=== PATIENT | male | born 1965 | race Caucasian/White ===

== ENCOUNTER 2020-03-15 06:33 | Observation (INO) | payer OTHER ==
[~2020-03-15] VITALS: Ht 167.6 cm; Wt 87.5 kg
[~2020-03-15 06:33] MED LIST: AMLODIPINE BESYL5 MG PO; B-121000 MCG PO; CARISOPRODOL350 MG PO; CITALOPRAM HBR40 MG PO; CLINDAMYCIN HC300 MG PO; ECOTRIN325 MG PO; FUROSEMIDE40 MG PO; HYDROCODON-ACE1 EAC9 PO; LOSARTAN POTAS100 MG PO; METOPROLOL SUC100 MG PO; NEURONTIN300 MG PO; PANTOPRAZOLE SO20 MG PO
[2020-03-15] MEDS ORDERED: PANTOPRAZOLE 40 MG 10ML VIAL IV STA (06:41)
[2020-03-15] MEDS ORDERED: KETOROLAC TROMETHAMINE 30 MG/ML VIAL IV STA (06:41)
[2020-03-15] MEDS ORDERED: NITROGLYCERIN 2% OINT 1 GM PKT TOP ONE (06:45)
[2020-03-15 07:49] LABS: BASOPHILS # (AUTO) 0.1 (0.0-0.1); BASOPHILS % 1.2 % (0.0-1.0); EOSINOPHILS # (AUTO) 0.2 (0.0-0.4); EOSINOPHILS % 2.5 % (0.0-6.0); HEMOGLOBIN 13.4 g/dL (14.0-18.0); LYMPHOCYTES # (AUTO) 2.1 (1.0-3.2); LYMPHOCYTES % 34.1 % (18.0-39.1); MEAN CORPUSCULAR HEMOGLOBIN 27.9 pg (28-32); MEAN CORPUSCULAR HGB CONC 31.9 g/dL (31-35); MEAN CORPUSCULAR VOLUME 87.5 fL (81-99); MONOCYTES # (AUTO) 0.6 (0.2-0.8); MONOCYTES % 9.9 % (4.4-11.3); NEUTROPHILS # (AUTO) 3.2 (2.1-6.9); NEUTROPHILS % 52.1 % (38.7-80.0); PLATELET COUNT 238 x10e3/uL (140-360); RED CELL DISTRIBUTION WIDTH 13.7 % (11.7-14.4)
[2020-03-15 08:12] LABS: INR 0.92; PROTHROMBIN TIME 12.8 seconds (11.9-14.5)
[2020-03-15] MEDS ORDERED: NITROGLYCERIN 0.4 MG SUBL SL PRN (08:30)
[2020-03-15] MEDS ORDERED: ONDANSETRON HCL INJ 2MG/ML 2ML 2 MG/ML VIAL IV PRN (08:30)
[2020-03-15 08:32] LABS: ALANINE AMINOTRANSFERASE 17 IU/L (0-55); ALBUMIN 4.3 g/dL (3.5-5.0); ALBUMIN/GLOBULIN RATIO 1.3 (0.8-2.0); ALKALINE PHOSPHATASE 66 IU/L (40-150); ANION GAP 15.8 mmol/L (8-16); BLOOD UREA NITROGEN 13 mg/dL (7-26); BUN/CREATININE RATIO 14 (6-25); CALCIUM 9.2 mg/dL (8.4-10.2); CARBON DIOXIDE 23 mmol/L (22-29); CHLORIDE 100 mmol/L (98-107); CREATINE KINASE 51 IU/L (30-200); CREATININE, SERUM 0.96 mg/dL (0.72-1.25); EST GLOMERULAR FILTRATION RATE > 60 ML/MIN (60-); GLUCOSE 120 mg/dL (74-118); POTASSIUM 3.8 mmol/L (3.5-5.1); SODIUM 135 mmol/L (136-145)
[2020-03-15] MEDS ORDERED: ASPIRIN 81 MG ENTERIC COATED PO SCH (09:00)
[2020-03-15] MEDS ORDERED: CLOPIDOGREL BISULFATE 75 MG TAB PO SCH (09:00)
[2020-03-15] MEDS ORDERED: OLMESARTAN MEDO20 MG PO (09:27)
[2020-03-15] MEDS ORDERED: CLOPIDOGREL75 MG PO (09:27)
[2020-03-15] MEDS ORDERED: K DUR10 MEQ PO (09:27)
[2020-03-15] MEDS ORDERED: SIMVASTATIN20 MG PO (09:27)
[2020-03-15] MEDS ORDERED: ACETAMINOPHEN 325 MG TAB PO PRN (10:30)
[2020-03-15] MEDS ORDERED: POLYETHYLENE GLYCOL 3350 17 GM PACK PO PRN (10:30)
[2020-03-15] MEDS ORDERED: HYDRALAZINE HCL 20 MG/ML VIAL IV PRN (10:30)
[2020-03-15] MEDS ORDERED: TEMAZEPAM 15 MG CAP PO PRN (10:30)
[2020-03-15 12:19] LABS: CREATINE KINASE MB 1.2 ng/mL (0-5.0)
[2020-03-15 12:42] LABS: BILIRUBIN,URINE NEGATIVE (NEGATIVE); CLARITY,URINE CLEAR (CLEAR); COLOR,URINE YELLOW (YELLOW); KETONES,URINE NEGATIVE (NEGATIVE); LEUKOCYTE ESTERASE ,URINE NEGATIVE (NEGATIVE); MUCUS,URINE RARE (RARE); NITRITE,URINE NEGATIVE (NEGATIVE); PROTEIN,URINE DIPSTICK NEGATIVE (NEGATIVE); RBC,URINE 0-5 /HPF (0-5); URINE UROBILINOGEN 0.2 mg/dL (0.2 - 1); WBC,URINE (MAN) 0-5 /HPF (0-5)
[2020-03-15] MEDS ORDERED: CARISOPRODOL 350 MG TAB PO PRN (15:00)
[2020-03-15] MEDS: GABAPENTIN 300 MG CAP PO SCH ×2 (16:16→21:00)
[2020-03-15] MEDS ORDERED: METOPROLOL SUCCINATE 50 MG TAB XL PO SCH (17:00)
[2020-03-15] MEDS: DOCUSATE SODIUM 100 MG CAP PO SCH (17:00)
[2020-03-15] MEDS ORDERED: METOPROLOL SUCCINATE 50 MG PO SCH (17:00)
[2020-03-15] MEDS: METOPROLOL SUCCINATE 50 MG TAB XL PO SCH (18:00)
[2020-03-15 18:22] VITALS: BP 100/76
[2020-03-15 18:28] VITALS: BP 100/76
[2020-03-15 20:00] VITALS: BP 128/93
[2020-03-15] MEDS ORDERED: METOPROLOL TARTRATE 50 MG TAB PO SCH (20:00)
[2020-03-15 20:21] LABS: CREATINE KINASE MB 1.3 ng/mL (0-5.0)
[2020-03-15] MEDS: FAMOTIDINE 20 MG/2 ML VIAL IV SCH (21:00)
[2020-03-15] MEDS: SODIUM CHLORIDE 0.9% 1000ML 1,000 ML IV SCH (21:00)
[2020-03-15 23:07] VITALS: BP 100/76
[2020-03-16] VITALS (13 sets, daily range): BP systolic 113–145; BP diastolic 61–114
[2020-03-16 05:25] LABS: BASOPHILS % 0.5 % (0.0-1.0); EOSINOPHILS # (AUTO) 0.1 (0.0-0.4); HEMATOCRIT 36.6 % (38.2-49.6); LYMPHOCYTES # (AUTO) 1.6 (1.0-3.2); LYMPHOCYTES % 25.8 % (18.0-39.1); MEAN CORPUSCULAR HGB CONC 32.8 g/dL (31-35); MEAN CORPUSCULAR VOLUME 85.5 fL (81-99); MONOCYTES # (AUTO) 0.6 (0.2-0.8); MONOCYTES % 10.3 % (4.4-11.3); NEUTROPHILS # (AUTO) 3.8 (2.1-6.9); NEUTROPHILS % 61.1 % (38.7-80.0); PLATELET COUNT 185 x10e3/uL (140-360); RED BLOOD COUNT 4.28 x10e6/uL (4.3-5.7); RED CELL DISTRIBUTION WIDTH 13.5 % (11.7-14.4)
[2020-03-16 05:52] LABS: ALANINE AMINOTRANSFERASE 13 IU/L (0-55); ALKALINE PHOSPHATASE 58 IU/L (40-150); ANION GAP 14.2 mmol/L (8-16); BLOOD UREA NITROGEN 15 mg/dL (7-26); BUN/CREATININE RATIO 16 (6-25); CALCIUM 8.6 mg/dL (8.4-10.2); CARBON DIOXIDE 21 mmol/L (22-29); CHLORIDE 107 mmol/L (98-107); CREATININE, SERUM 0.92 mg/dL (0.72-1.25); EST GLOMERULAR FILTRATION RATE > 60 ML/MIN (60-); GLUCOSE 90 mg/dL (74-118); POTASSIUM 4.2 mmol/L (3.5-5.1); SODIUM 138 mmol/L (136-145)
[2020-03-16] MEDS: PANTOPRAZOLE SOD 40 MG TABEC PO SCH (07:30)
[2020-03-16] MEDS ORDERED: HEPARIN SOD/SOD CHLORIDE 2,000 ML ONE (07:51)
[2020-03-16] MEDS ORDERED: LIDOCAINE HCL 2% LOCAL 20 ML VIAL ONE (07:51)
[2020-03-16] MEDS ORDERED: IOPAMIDOL 370 MG/ML 200 ML INFUS..BTL INJ ONE (07:52)
[2020-03-16] MEDS ORDERED: HEPARIN SOD (PORCINE) 1000 UNIT/ML 30ML ONE (07:57)
[2020-03-16] MEDS ORDERED: MIDAZOLAM HCL 2 MG/2 ML VIAL ONE (07:57)
[2020-03-16] MEDS ORDERED: FENTANYL CITRATE/PF 100MCG/2 ML INJ ONE (07:58)
[2020-03-16] MEDS ORDERED: SODIUM CHLORIDE 0.9% 1000ML 1,000 ML ONE (07:59)
[2020-03-16] MEDS ORDERED: NITROGLYCERIN/D5W 200 MCG/ML 250 ML ONE (07:59)
[2020-03-16] MEDS ORDERED: BIVALRIUDIN 250 MG/VIAL VIAL IV ONE (08:19)
[2020-03-16] MEDS ORDERED: SODIUM CHLORIDE 0.9% 50ML 50 ML ONE (08:20)
[2020-03-16 08:33] LABS: MAGNESIUM 2.1 MG/DL (1.3-2.1); PHOSPHORUS 2.1 MG/DL (2.3-4.7)
[2020-03-16] MEDS ORDERED: ASPIRIN 325 MG TAB ONE (08:43)
[2020-03-16] MEDS ORDERED: CLOPIDOGREL BISULFATE 75 MG TAB ONE (08:43)
[2020-03-16] MEDS ORDERED: CEFAZOLIN SOD 2 GM/D5W 50ML 50 ML IV ONE (08:44)
[2020-03-16 08:53] LABS: ALBUMIN 4.4 g/dL (3.5-5.0); ALBUMIN/GLOBULIN RATIO 1.9 (0.8-2.0)
[2020-03-16 08:54] LABS: THYROID STIMULATING HORMONE 1.13 uIU/mL (0.350-4.940)
[2020-03-16] MEDS ORDERED: NON-FORMULARY MEDICATION (Pantoprazole Sodium 40 MG) PO SCH (09:00)
[2020-03-16] MEDS: FUROSEMIDE 20 MG TAB PO SCH (09:00)
[2020-03-16] MEDS: ASPIRIN 81 MG ENTERIC COATED PO SCH (09:00)
[2020-03-16] MEDS ORDERED: NON-FORMULARY MEDICATION (Cyanocobalamin (Vitamin B-12) (B-12) 1,000 MCG) PO SCH (09:00)
[2020-03-16] MEDS ORDERED: FUROSEMIDE 40 MG TAB PO SCH (09:00)
[2020-03-16] MEDS ORDERED: FUROSEMIDE 20 MG TAB PO SCH (09:00)
[2020-03-16] MEDS ORDERED: ASPIRIN 325 MG TAB EC PO SCH (09:00)
[2020-03-16] MEDS: CLOPIDOGREL BISULFATE 75 MG TAB PO SCH (09:00)
[2020-03-16] MEDS ORDERED: NON-FORMULARY MEDICATION (Citalopram Hydrobromide (Citalopram Hbr) 40 MG) PO SCH (09:00)
[2020-03-16] MEDS: FAMOTIDINE 20 MG/2 ML VIAL IV SCH ×2 (09:40→21:00)
[2020-03-16] MEDS: OLMESARTAN 20 MG TAB PO SCH (09:41)
[2020-03-16] MEDS: CITALOPRAM HYDROBROMIDE 20 MG TAB PO SCH (09:41)
[2020-03-16] MEDS: POTASSIUM CHLORIDE 10MEQ EA PO SCH (09:42)
[2020-03-16] MEDS: AMLODIPINE BESYLATE 5 MG TAB PO SCH (09:42)
[2020-03-16] MEDS: DOCUSATE SODIUM 100 MG CAP PO SCH ×2 (09:42→16:00)
[2020-03-16] MEDS: GABAPENTIN 300 MG CAP PO SCH ×3 (09:42→21:00)
[2020-03-16] MEDS: METOPROLOL SUCCINATE 50 MG TAB XL PO SCH (09:43)
[2020-03-16] MEDS: CYANOCOBALAMIN 1,000 MCG TAB PO SCH (09:43)
[2020-03-16] MEDS: MORPHINE SULFATE 2 MG/ML SYR 1ML IV PRN ×2 (10:05→21:00)
[2020-03-16] MEDS: SODIUM CHLORIDE 0.9% 1000ML 1,000 ML IV SCH (10:59)
[2020-03-16] MEDS ORDERED: SIMVASTATIN 20 MG TAB PO SCH (21:00)
[2020-03-17] VITALS: BP 97/57
[2020-03-17 04:00] VITALS: BP 118/67
[2020-03-17 05:10] LABS: BASOPHILS % 0.6 % (0.0-1.0); EOSINOPHILS # (AUTO) 0.1 (0.0-0.4); EOSINOPHILS % 2.4 % (0.0-6.0); HEMATOCRIT 35.7 % (38.2-49.6); HEMOGLOBIN 11.4 g/dL (14.0-18.0); LYMPHOCYTES # (AUTO) 1.4 (1.0-3.2); LYMPHOCYTES % 25.7 % (18.0-39.1); MEAN CORPUSCULAR HEMOGLOBIN 27.7 pg (28-32); MEAN CORPUSCULAR HGB CONC 31.9 g/dL (31-35); MEAN CORPUSCULAR VOLUME 86.7 fL (81-99); MONOCYTES # (AUTO) 0.6 (0.2-0.8); NEUTROPHILS # (AUTO) 3.2 (2.1-6.9); NEUTROPHILS % 60.1 % (38.7-80.0); PLATELET COUNT 178 x10e3/uL (140-360); RED BLOOD COUNT 4.12 x10e6/uL (4.3-5.7); RED CELL DISTRIBUTION WIDTH 13.7 % (11.7-14.4)
[2020-03-17 05:31] LABS: ALANINE AMINOTRANSFERASE 11 IU/L (0-55); ALKALINE PHOSPHATASE 56 IU/L (40-150); ANION GAP 14.3 mmol/L (8-16); BLOOD UREA NITROGEN 9 mg/dL (7-26); BUN/CREATININE RATIO 11 (6-25); CALCIUM 8.2 mg/dL (8.4-10.2); CARBON DIOXIDE 21 mmol/L (22-29); CHLORIDE 110 mmol/L (98-107); CREATININE, SERUM 0.82 mg/dL (0.72-1.25); EST GLOMERULAR FILTRATION RATE > 60 ML/MIN (60-); GLUCOSE 91 mg/dL (74-118); POTASSIUM 4.3 mmol/L (3.5-5.1); SODIUM 141 mmol/L (136-145)
[2020-03-17 05:58] LABS: ALBUMIN 4.1 g/dL (3.5-5.0); ALBUMIN/GLOBULIN RATIO 1.9 (0.8-2.0)
[2020-03-17 07:30] VITALS: BP 117/66
[2020-03-17 07:52] VITALS: BP 117/66
[2020-03-17] MEDS: PANTOPRAZOLE SOD 40 MG TABEC PO SCH (10:37)
[2020-03-17] MEDS: ASPIRIN 81 MG ENTERIC COATED PO SCH (10:37)
[2020-03-17] MEDS: SODIUM CHLORIDE 0.9% 1000ML 1,000 ML IV SCH (10:37)
[2020-03-17] MEDS: FAMOTIDINE 20 MG/2 ML VIAL IV SCH (10:37)
[2020-03-17] MEDS: CITALOPRAM HYDROBROMIDE 20 MG TAB PO SCH (10:38)
[2020-03-17] MEDS: GABAPENTIN 300 MG CAP PO SCH (10:38)
[2020-03-17] MEDS: DOCUSATE SODIUM 100 MG CAP PO SCH (10:38)
[2020-03-17] MEDS: POTASSIUM CHLORIDE 10MEQ EA PO SCH (10:38)
[2020-03-17] MEDS: OLMESARTAN 20 MG TAB PO SCH (10:38)
[2020-03-17] MEDS: AMLODIPINE BESYLATE 5 MG TAB PO SCH (10:38)
[2020-03-17] MEDS: FUROSEMIDE 20 MG TAB PO SCH (10:38)
[2020-03-17] MEDS: CLOPIDOGREL BISULFATE 75 MG TAB PO SCH (10:39)
[2020-03-17] MEDS: CYANOCOBALAMIN 1,000 MCG TAB PO SCH (10:40)
[2020-03-17] MEDS: METOPROLOL SUCCINATE 50 MG TAB XL PO SCH (10:40)
[2020-03-17] MEDS ORDERED: NITROSTAT0.4 MG SL (11:12)
[2020-03-17] MEDS ORDERED: COLACE100 MG PO (11:12)
[2020-03-17] MEDS ORDERED: FUROSEMIDE20 MG PO (11:12)
[2020-03-17] MEDS ORDERED: ACETAMINOPHEN325 M1 PO (11:12)
[2020-03-17] MEDS ORDERED: MIRALAX17 GM PO (11:13)
[2020-03-17 11:28] VITALS: BP 140/107
== END 2020-03-17 13:36 | disposition home or self-care (01) ==
LOC: ER 06:43 → ERHOLD 08:25 → MED/SURG2 16:42
PROVIDERS: ADMIT Internal Medicine; ATTEND Internal Medicine
DX: I25.110 Atherosclerotic heart disease of native coronary artery with unstable angina pectoris (principal); I25.2 Old myocardial infarction; I11.0 Hypertensive heart disease with heart failure; I50.22 Chronic systolic (congestive) heart failure; Z87.891 Personal history of nicotine dependence; F10.21 Alcohol dependence, in remission; Z20.828 Contact with and (suspected) exposure to other viral communicable diseases; E78.5 Hyperlipidemia, unspecified; Z95.5 Presence of coronary angioplasty implant and graft; E03.9 Hypothyroidism, unspecified; G62.9 Polyneuropathy, unspecified
CPT/HCPCS: 36415 ×3; 71045; 80053 ×3; 80061; 81001; 82550; 82553; 82948; 83036; 83735; 83880; 84100; 84443; 84484; 85025 ×3; 85379; 85610; 85730; 92928; 93005; 93306; 93458; 96360; 96361; 97139; 97161; 99284; C1760; C1766; C1769; C1876; C1887 ×2; C9113; G0378 ×3; J0583; J0690; J1885; J2001; J2250; J2270 ×2; J2405; J3010; J7030 ×3; Q9967; S0164; U0002; 99152; 99153; J1644

== ENCOUNTER → 2024-05-15 | Day surgery (SDC) | payer OTHER ==
[2024-05-12 11:35] LABS: BASOPHILS # (AUTO) 0.1 (0.0-0.1); BASOPHILS % 0.8 % (0.0-1.0); EOSINOPHILS # (AUTO) 0.2 (0.0-0.4); EOSINOPHILS % 3.4 % (0.0-6.0); LYMPHOCYTES # (AUTO) 1.6 (1.0-3.2); LYMPHOCYTES % 25.3 % (18.0-39.1); MEAN CORPUSCULAR HGB CONC 30.6 g/dL (31-35); MEAN CORPUSCULAR VOLUME 88.2 fL (81-99); MONOCYTES # (AUTO) 0.5 (0.2-0.8); MONOCYTES % 7.9 % (4.4-11.3); NEUTROPHILS % 62.4 % (38.7-80.0); PLATELET COUNT 250 x10e3/uL (140-360); RED BLOOD COUNT 4.08 x10e6/uL (4.3-5.7); RED CELL DISTRIBUTION WIDTH 13.5 % (11.7-14.4); WHITE BLOOD COUNT 6.43 x10e3/uL (4.8-10.8)
[~2024-05-15] MED LIST changes: +ACETAMINOPHEN325 M1 PO; +CLOPIDOGREL75 MG PO; +COLACE100 MG PO; +FIBER TABS625 MG PO; +FUROSEMIDE20 MG PO; +FUROSEMIDE80 MG PO; +K DUR10 MEQ PO; +MIRALAX17 GM PO; +NITROSTAT0.4 MG SL; +OLMESARTAN MEDO20 MG PO; +SIMVASTATIN20 MG PO; +ULTRAM 50MG50 MG PO
[2024-05-15] MEDS: LACTATED RINGER'S 1,000 ML ONE (09:31)
[2024-05-15 10:54] VITALS: TEMP 97.6
[2024-05-15 11:20] VITALS: BP 136/85; PULSE 51; RESP 18; O2SAT 98
== END | disposition home or self-care (01) ==
LOC: OR 08:53
PROVIDERS: ATTEND Internal Medicine Gastroenterology
DX: K44.9 Diaphragmatic hernia without obstruction or gangrene (principal); K29.60 Other gastritis without bleeding; K31.1 Adult hypertrophic pyloric stenosis; K20.90 Esophagitis, unspecified without bleeding; K92.0 Hematemesis; K21.9 Gastro-esophageal reflux disease without esophagitis; K59.09 Other constipation; Z71.3 Dietary counseling and surveillance; D64.9 Anemia, unspecified; R05.3 Chronic cough; I11.0 Hypertensive heart disease with heart failure; I50.9 Heart failure, unspecified; Z71.89 Other specified counseling; I25.10 Atherosclerotic heart disease of native coronary artery without angina pectoris; E78.00 Pure hypercholesterolemia, unspecified; E66.9 Obesity, unspecified; F32.A Depression, unspecified; Z01.810 Encounter for preprocedural cardiovascular examination; Z01.812 Encounter for preprocedural laboratory examination; Z79.02 Long term (current) use of antithrombotics/antiplatelets; Z79.82 Long term (current) use of aspirin; Z79.899 Other long term (current) drug therapy; Z68.34 Body mass index [BMI] 34.0-34.9, adult; Z95.5 Presence of coronary angioplasty implant and graft; Z87.891 Personal history of nicotine dependence
CPT/HCPCS: 36415; 43239; 43245; 85025; 88305; 88342; 93005; J2470; J7121; 43450

== ENCOUNTER → 2024-06-06 | Day surgery (SDC) | payer OTHER ==
[2024-06-04 12:35] LABS: BASOPHILS # (AUTO) 0.1 (0.0-0.1); BASOPHILS % 1.3 % (0.0-1.0); EOSINOPHILS # (AUTO) 0.2 (0.0-0.4); EOSINOPHILS % 3.1 % (0.0-6.0); LYMPHOCYTES # (AUTO) 1.7 (1.0-3.2); LYMPHOCYTES % 22.5 % (18.0-39.1); MEAN CORPUSCULAR HEMOGLOBIN 26.8 pg (28-32); MEAN CORPUSCULAR VOLUME 89.5 fL (81-99); MONOCYTES # (AUTO) 0.6 (0.2-0.8); MONOCYTES % 7.2 % (4.4-11.3); NEUTROPHILS # (AUTO) 5.1 (2.1-6.9); NEUTROPHILS % 65.5 % (38.7-80.0); PLATELET COUNT 261 x10e3/uL (140-360); RED BLOOD COUNT 4.47 x10e6/uL (4.3-5.7); RED CELL DISTRIBUTION WIDTH 13.8 % (11.7-14.4); WHITE BLOOD COUNT 7.75 x10e3/uL (4.8-10.8)
[2024-06-04 13:13] LABS: INR 0.91; PROTHROMBIN TIME 12.8 seconds (11.9-14.5)
[2024-06-04 13:23] LABS: ALBUMIN/GLOBULIN RATIO 1.2 (0.8-2.0); ANION GAP 14.7 mmol/L (8-16); BILIRUBIN,TOTAL 0.2 mg/dL (0.2-1.2); CALCIUM 9.5 mg/dL (8.4-10.2); CREATININE, SERUM 2.1 mg/dL (0.72-1.25); POTASSIUM 4.7 mmol/L (3.5-5.1); TOTAL PROTEIN 7.4 g/dL (6.5-8.1)
[~2024-06-06] VITALS: Ht 177.8 cm; Wt 102.5 kg
[2024-06-06] VITALS (14 sets, daily range): BP systolic 91–121; BP diastolic 48–97; PULSE 54–63; RESP 12–20; TEMP 97.3–97.5; O2SAT 100
[~2024-06-06] MED LIST changes: +ASPIRIN 325 MG TAB ONE; +ASPIRIN EC81 MG PO; +FARXIGA10 MG; +FENTANYL CITRATE/PF 100MCG/2 ML INJ ONE; +HEPARIN SOD (PORCINE) 1000 UNIT/ML 30ML ONE; +HEPARIN SOD/SOD CHLORIDE 2,000 ML ONE; +IOPAMIDOL 370 MG/ML 100 ML INFUS..BTL INJ ONE; +LIDOCAINE HCL 2% LOCAL 20 ML VIAL ONE; +MIDAZOLAM HCL 2 MG/2 ML VIAL ONE; +NITROGLYCERIN/D5W 200 MCG/ML 250 ML ONE; +SODIUM CHLORIDE 0.9% 1000ML 1,000 ML ONE; +SPIRONOLACTONE25 MG PO; +VERAPAMIL HCL 2.5 MG/ML 2 ML VIAL ONE
[2024-06-06 09:00] LABS: ALBUMIN 3.5 g/dL (3.5-5.0); ALBUMIN/GLOBULIN RATIO 1.3 (0.8-2.0); ANION GAP 14.2 mmol/L (8-16); BILIRUBIN,TOTAL 0.2 mg/dL (0.2-1.2); CALCIUM 8.9 mg/dL (8.4-10.2); CREATININE, SERUM 1.37 mg/dL (0.72-1.25); POTASSIUM 4.2 mmol/L (3.5-5.1); TOTAL PROTEIN 6.3 g/dL (6.5-8.1)
== END | disposition home or self-care (01) ==
LOC: CATH LAB 07:22
PROVIDERS: ATTEND Internal Medicine
DX: I25.119 Atherosclerotic heart disease of native coronary artery with unspecified angina pectoris (principal); R94.39 Abnormal result of other cardiovascular function study; I11.0 Hypertensive heart disease with heart failure; I50.22 Chronic systolic (congestive) heart failure; I87.2 Venous insufficiency (chronic) (peripheral); I73.9 Peripheral vascular disease, unspecified; I65.23 Occlusion and stenosis of bilateral carotid arteries; I25.2 Old myocardial infarction; Z95.5 Presence of coronary angioplasty implant and graft; Z71.89 Other specified counseling; Z71.82 Exercise counseling; Z71.3 Dietary counseling and surveillance; Z01.812 Encounter for preprocedural laboratory examination; Z79.02 Long term (current) use of antithrombotics/antiplatelets; Z79.82 Long term (current) use of aspirin; Z79.899 Other long term (current) drug therapy; Z68.34 Body mass index [BMI] 34.0-34.9, adult
CPT/HCPCS: 93458; C9600; 36415; 76937; 80053; 85025; 85347; 85610; 92928; 99152; 99153; C1725; C1769; C1874; J1644; J2003; J2250; J7030; Q9967

== ENCOUNTER 2025-03-31 15:18 | Emergency (ER) | payer OTHER ==
[~2025-03-31] VITALS: Ht 177.8 cm; Wt 86.2 kg
[~2025-03-31 15:18] MED LIST changes: -ASPIRIN 325 MG TAB ONE; -FENTANYL CITRATE/PF 100MCG/2 ML INJ ONE; -HEPARIN SOD (PORCINE) 1000 UNIT/ML 30ML ONE; -HEPARIN SOD/SOD CHLORIDE 2,000 ML ONE; -IOPAMIDOL 370 MG/ML 100 ML INFUS..BTL INJ ONE; -LIDOCAINE HCL 2% LOCAL 20 ML VIAL ONE; -MIDAZOLAM HCL 2 MG/2 ML VIAL ONE; -NITROGLYCERIN/D5W 200 MCG/ML 250 ML ONE; -SODIUM CHLORIDE 0.9% 1000ML 1,000 ML ONE; -VERAPAMIL HCL 2.5 MG/ML 2 ML VIAL ONE
[2025-03-31] MEDS: KETOROLAC TROMETHAMINE 30 MG/ML VIAL IM STA (18:04)
[2025-03-31 18:28] LABS: EPITHELIAL CELLS,URINE FEW /LPF; LEUKOCYTE ESTERASE ,URINE NEGATIVE (NEGATIVE); PROTEIN,URINE DIPSTICK NEGATIVE (NEGATIVE); URINE UROBILINOGEN 0.2 mg/dL (0.2 - 1); WBC,URINE (MAN) 0-5 /HPF (0-5)
[2025-03-31 18:30] LABS: CORONAVIRUS COVID-19 AG NEGATIVE (NEGATIVE)
[2025-03-31] MEDS ORDERED: ULTRAM 50MG50 MG PO (18:42)
[2025-03-31] MEDS ORDERED: VENTOLIN HFA18 GM INH (18:43)
[2025-03-31 18:55] VITALS: PULSE 53; RESP 18; TEMP 98
[2025-03-31 19:37] VITALS: BP 121/56; PULSE 53; RESP 18; TEMP 98; O2SAT 100
== END 2025-03-31 19:00 | disposition home or self-care (01) ==
LOC: ER 17:43
DX: M54.50 Low back pain, unspecified (principal); R05.9 Cough, unspecified; I10 Essential (primary) hypertension; I50.9 Heart failure, unspecified; E78.5 Hyperlipidemia, unspecified; G62.9 Polyneuropathy, unspecified; F32.A Depression, unspecified; Z11.52 Encounter for screening for COVID-19; I25.2 Old myocardial infarction; Z85.118 Personal history of other malignant neoplasm of bronchus and lung
CPT/HCPCS: 74176; 81001; 87426; 99284; J1885